=== PATIENT | female | born 1950 | race Caucasian/White ===

== ENCOUNTER → 2017-05-13 16:46 | Outpatient (CLI) | payer MEDICARE, OTHER | END | disposition home or self-care (01) | LOC: D.MAMMO 16:46 | DX: Z12.31 Encounter for screening mammogram for malignant neoplasm of breast (principal) ==

== ENCOUNTER → 2017-05-14 19:16 | Outpatient (CLI) | payer MEDICARE, OTHER | END | disposition home or self-care (01) | LOC: D.SLEEP 19:16 | DX: G47.33 Obstructive sleep apnea (adult) (pediatric) (principal) ==

== ENCOUNTER → 2017-05-22 08:41 | Outpatient (CLI) | payer MEDICARE, OTHER | END | disposition home or self-care (01) | LOC: D.ECHO 08:41 | DX: I48.91 Unspecified atrial fibrillation (principal) ==

== ENCOUNTER → 2017-06-21 07:36 | Outpatient (CLI) | payer MEDICARE, OTHER | END | disposition home or self-care (01) | LOC: D.RT 07:36 | DX: I42.9 Cardiomyopathy, unspecified (principal); I10 Essential (primary) hypertension; I48.91 Unspecified atrial fibrillation ==

== ENCOUNTER → 2017-07-22 17:07 | Outpatient (CLI) | payer MEDICARE, OTHER ==
[2017-07-22 20:10] LABS: T4 THYROXIN - FREE 1.16 ng/dL (0.76-1.46); T4 THYROXINE 10.3 ug/dL (4.7-13.3); THYROID STIMULATING HORMONE 0.58 uIU/mL (0.36-3.74)
== END | disposition home or self-care (01) ==
LOC: D.LABREF 17:07
PROVIDERS: Internal Medicine Cardiovascular Disease
DX: I48.91 Unspecified atrial fibrillation (principal)

== ENCOUNTER 2018-01-16 06:36 | Outpatient (CLI) | payer MEDICARE, OTHER ==
[~2018-01-16] VITALS: Ht 165.1 cm; Wt 65.9 kg
[2018-01-16] MEDS ORDERED: METFORMIN HCL500 M1 PO (06:52)
[2018-01-16] MEDS ORDERED: COUMADIN1 MG PO (06:52)
[2018-01-16] MEDS ORDERED: ARMOUR THYROID30 MG PO (06:53)
[2018-01-16] MEDS ORDERED: DHEA25 M1 PO (06:54)
[2018-01-16] MEDS ORDERED: PROMETRIUM100 MG PO (06:55)
[2018-01-16 07:03] VITALS: BP 114/54; Ht 165.1 cm; Wt 65.9 kg
[2018-01-16 07:09] LABS: HEMATOCRIT 36.3 % (36.0-48.0); MCH 29.9 pg (26.0-34.0); MCHC 33.1 g/dL (31.0-37.0); MCV 90.5 fL (80.0-100.0); MEAN PLATELET VOLUME 9.9 fL (7.4-10.4); PLATELET COUNT 187 10x3/uL (130-400); RBC 4.01 10x6/uL (4.00-5.40); RDW 14.1 % (11.5-14.5); WBC 5.5 10x3/uL (4.8-10.8)
[2018-01-16 07:16] LABS: ANION GAP 11.8 mmol/L (8-16); CALCIUM 8.6 mg/dL (8.5-10.1); CARBON DIOXIDE 26.2 mmol/L (21.0-32.0); CREATININE - SERUM 0.9 mg/dL (0.6-1.3)
[2018-01-16 07:19] LABS: INR 2.12 (0.85-1.17); PROTIME 23.1 SECONDS (11.6-15.0)
[2018-01-16 08:08] LABS: EOSINOPHILS 2 % (0-7); LYMPHOCYTES 54 % (15-50); MONOCYTES 6 % (2-11); NEUTROPHILS 35 % (40-80); PLATELET ESTIMATE NORMAL
== END 2018-01-16 08:25 | disposition home or self-care (01) ==
LOC: D.CATH 06:36
PROVIDERS: Internal Medicine Cardiovascular Disease
DX: R06.00 Dyspnea, unspecified (principal); Z01.812 Encounter for preprocedural laboratory examination; Z53.09 Procedure and treatment not carried out because of other contraindication

== ENCOUNTER 2018-01-22 07:09 | Outpatient (CLI) | payer MEDICARE, OTHER ==
[~2018-01-22] VITALS: Ht 165.1 cm; Wt 66.8 kg
--- NOTE | ~2018-01-22 | HEMODYNAMI ---
PATIENT:FARIDA BOWENS MEDICAL RECORD: [id number] : 52 LOCATION:[facility] ADMISSION DATE: 01/22/18 Generatedon:01/22/201810:58 Patient name: FARIDA BOWENS Patient #: [id number] SSN: [id number] : 1950 Date of study: 01/22/2018 Page: Of Hemodynamic Procedure Report Patient Data Patient Demographics Procedure consent was obtained First Name: JANUARY Gender: Female Last Name: KWAN : 1950 [facility] Initial: DORIAN Age: 67 year(s) Patient #: [id number] Race: SSN: [id number] Additional ID: [id number] Contact details Address: [address] [place] [address] [place] State: [place] City: [place] Zip code: [address] Admission Admission Data Admission Date: 01/22/2018 Admission Time: 7:09 Lab Results Lab Result Date: 01/22/2018 Lab Result Time: 0:00 Biochemistry Name Units Result Min Max BUN mg/dl 16 --(---*)-- 7 18 Creatinine mg/dl 0.8 --(-*--)-- 0.6 1.3 CBC Name Units Result Min Max Hemoglobin g/dl 11.9 *-(----)-- 13.5 17.5 Procedure Procedure Types Cath Procedure Diagnostic Procedure C [facility] w/Coronaries Sedation Charges Moderate Sedation up to 15 minutes Procedure Description Procedure Date Procedure Date: 01/22/2018 Procedure Start Time: 10:45 Procedure End Time: 10:57 Procedure Staff Name Function Gio Ashton MD Performing Physician Barbi Cota RT Monitor Venu Lewis RN Nurse Rain Florian RT Scrub Procedure Data Cath Procedure Fluoroscopy Diagnostic fluoroscopy Total fluoroscopy Time: 1.4 time: 1.4 min min Diagnostic fluoroscopy Total fluoroscopy dose: 248 dose: 248 mGy mGy Contrast Material Contrast Material Type Amount (ml) Isovue 300 25 Entry Location Entry Primary Successful Side Size Upsize Upsize Entry Closure Zelaya ccessful Closure Location (Fr) 1 (Fr) 2 (Fr) Remarks Device Remarks Radial Right 6 Fr Mechanical artery Short Compression Estimated blood loss: 5 ml Diagnostic catheters Device Type Used For End Catheter Placement DIAGNOSTIC [place] 110cm 5 Multi-vessel Fr catheter ([id number]) Angiography Procedure Complications No complications Procedure Medications Medication Administration Route Dosage Oxygen NC 2 l/min Lidocaine 2% added to field 20 Heparin Flush Bag added to field 2 bags (1000units/500ml NS) 0.9% NaCl I.V. 100 ml/hr Radial Cocktail I.A. 1 syringe (Verapomil 2mg/Nitro 400mcg/Heparin 1500units) Versed I.V. 1 mg Fentanyl I.V. 50 mcg Versed I.V. 1 mg Hemodynamics Rest HGB: 11.9 (g/dl) Heart Rate: 55 (bpm) Pressure Samples Time Site Value (mmHg) Purpose Heart Use Rate(bpm) 10:52 LV 108/4,17 Snapshot 80 Gradients Valve Time Site Site Mean SEP/DFP Peak To Heart Use 1 2 (mmHg) (sec/min) Peak Rate (mmHg) (bpm) Aortic 10:52 LV AO 108 Snapshots Pre Cath Intra NCS Post Cath Vital Signs Time Heart Resp SPO2 etCO2 NIBP Rhythm Pain Sedation Rate (ipm) (%) (mmHg) (mmHg) Status Level (bpm) 10:36:18 56 19 100 14.1 101/52(71) NSR 0 (11) 10(A) , No pain 10:41:27 58 18 98 36.4 107/52(73) NSR 0 (11) 10(A) , No pain 10:46:46 57 16 99 36.4 101/54(75) NSR 0 (11) 9(A) , No pain 10:52:23 83 15 99 34.9 92/45(73) NSR 0 (11) 9(A) , No pain 10:56:29 64 15 97 36.4 97/51(70) NSR 0 (11) 10(A) , No pain Medications Time Medication Route Dose Verified Delivered Reason Notes Effectiveness by by 10:31:20 Oxygen NC 2 l/min Gio Buffie used for Daisha Lewis RN procedure 10:31:26 Lidocaine 2% added 20ml Gio Gio for local to vial Daisha Ashton MD anesthetic field MD 10:31:32 Heparin Flush added 2 bags Gio Gio used for Bag to Daisha Ashton MD procedure (1000units/500ml field NS) 10:32:08 0.9% NaCl I.V. 100 Gio Buffie Per ml/hr Daisha Lewis RN physician 10:42:23 Versed I.V. 1 mg Gio Buffie for sedation Daisha Lewis RN, MD 10:42:28 Fentanyl I.V. 50 mcg Gio Buffie for sedation Daisha Lewis RN, MD 10:44:58 Versed I.V. 1 mg Gio Buffie for sedation Daisha Lewis RN, MD 10:50:52 Radial Cocktail I.A. 1 Gio Gio for (Verapomil syringe Daisha Ashton MD vasodilation 2mg/Nitro MD 400mcg/Heparin 1500units) Procedure Log Time Note 10:12:14 Diagnostic Cath Status : Elective 10:12:54 Rain Florian RT(R) sent for patient. Start room use. 10:12:55 Time tracking: Regular hours (M-F 7:00 - 5:00) 10:12:59 Plan of Care:Hemodynamics will remain stable., Cardiac rhythm will remain stable., Comfort level will be maintained., Respiratory function will remain adequate., Patient/ family verbilizes understanding of procedure., Procedure tolerated without complication., Recovers from procedure without complications.. 10:14:24 Informed consent obtained and on chart 10:18:09 Lab Result : Hemoglobin 11.9 g/dl 10:18:09 Lab Result : Creatinine 0.8 mg/dl 10:18:09 Lab Result : BUN 16 mg/dl 10:19:32 Patient received from Pre/Post Procedure Room to [facility] 2 Alert and oriented. Tansferred to table in Supine position. 10:19:33 Warm blankets applied, and hanna hugger turned on for patient comfort. 10:19:34 Correct patient and procedure confirmed by team. 10:19:34 ECG and BP/O2 sat monitors applied to patient. 10:31:20 Oxygen 2 l/min NC was administered by Venu Lewis RN; used for procedure; 10:31:26 Lidocaine 2% 20ml vial added to field was administered by Gio Ashton MD; for local anesthetic; 10:31:32 Heparin Flush Bag (1000units/500ml NS) 2 bags added to field was administered by Gio Ashton MD; used for procedure; 10:32:08 0.9% NaCl 100 ml/hr I.V. was administered by Venu Lewis RN; Per physician; 10:34:30 Vital chart was started 10:34:31 Baseline sample Acquired. 10:34:36 Rhythm: sinus rhythm 10:34:38 Full Disclosure recording started 10:34:41 H&P Date Dictated: 01/22/2018 Within 30 days and on chart., H&P Addendum completed by physician on day of procedure. (MUST COMPLETE FOR ALL OUTPATIENTS). 10:34:43 Pre-procedure instructions explained to patient. 10:34:43 Pre-op teaching completed and patient verbalized understanding. 10:34:45 Family in patients room. 10:34:46 Patient NPO since Midnight. 10:34:56 Is the patient allergic to Iodine/contrast media? No. 10:34:57 Was the patient premedicated? No 10:34:58 Is patient on blood thinner?Yes 10:35:01 ACC The patient was administered the following blood thiners within the last 24 hours: ACCPlavix 10:35:03 Patient diabetic? Yes. 10:35:04 If diabetic: On Metformin? Yes 10:35:08 If on Metformin: Last Dose? 01/18/2018 10:35:12 Previous problem with sedation/anesthesia? No ? 10:35:14 Snore? No 10:35:16 Sleep apnea? No 10:35:17 Deviated septum? No 10:35:19 Opens mouth fully? Yes 10:35:20 Sticks out tongue? Yes 10:35:22 Airway obstruction? No ? 10:35:26 Dentures? No ? 10:36:19 Patient stopped taking coumadin on 01/15/2018 10:36:29 Pre procedure: right dorsailis pedis pulse 2+ Normal; easily identifiable; not easily obliterated 10:36:31 Pre procedure: left dorsailis pedis pulse 2+ Normal; easily identifiable; not easily obliterated 10:36:33 Patient pain scale 0/10 ?. 10:36:40 IV patent on arrival in left forearm with 0.9% NaCl at O. 10:36:42 Lab results completed and on chart. 10:36:46 Right Radial & Right Groin area was prepped with chlora-prep and draped in sterile fashion 10:36:47 Alarms reviewed by R. N. 10:36:47 Sharps counted by scrub and verified by R.N. 10:36:50 Physician arrived 10:36:50 --------ALL STOP TIME OUT------ 10:36:51 Final Timeout: patient, procedure, and site verified with staff and physician. All members of the team are in agreement. 10:36:52 Right Radial & Right Groin site verified by team. 10:36:55 Physical assessment completed. ASA score P 2 - A patient with mild systemic disease as per Gio Ashton MD. 10:37:00 Sedation plan: IV Moderate Sedation Medication:Versed, Fentanyl 10:37:17 Use device set Radial Dx or PCI 10:37:18 ACIST Syringe (64900) opened to sterile field. 10:37:19 Medline Cath Pack ([id number]) opened to sterile field. 10:37:19 Bag Decanter (2002S) opened to sterile field. 10:37:20 DIAGNOSTIC WIRE .035 260cm J wire (501182) opened to sterile field. 10:37:20 ACIST Hand Control (31653) opened to sterile field. 10:37:21 ACIST Manifold (78477) opened to sterile field. 10:37:21 Tegaderm 4 x 4 (1626W) opened to sterile field. 10:37:23 MBrace Wrist Support ([id number]) opened to sterile field. 10:37:26 SHEATH 6Fr Prelude Radial ([id number]) opened to sterile field. 10:42:23 Versed 1 mg I.V. was administered by Venu Lewis RN; for sedation; 10:42:28 Fentanyl 50 mcg I.V. was administered by Venu Lewis RN; for sedation; 10:44:58 Versed 1 mg I.V. was administered by Venu Lewis RN; for sedation; 10:45:05 Procedure started. 10:45:09 Local anesthetic to right radial artery with Lidocaine 2% by Gio Ashton MD.INITIAL ACCESS ONLY 10:45:18 A 6 Fr Short sheath was inserted into the Right Radial artery 10:45:32 Zero performed for pressure channel P1 10:49:54 A DIAGNOSTIC [place] 110cm 5 Fr catheter ([id number]) was advanced over the wire and used for Multi-vessel Angiography. 10:50:52 Radial Cocktail (Verapomil 2mg/Nitro 400mcg/Heparin 1500units) 1 syringe I.A. was administered by Gio Ashton MD; for vasodilation; 10:52:06 LV hemodynamics recorded. 10:52:07 LV gram done using OROZCO 10:52:10 Injector settings: Ml/sec: 12, Volume: 8, 10:53:14 EF : 55 % 10:53:18 LCA angiography performed. 10:53:20 Injector settings: Ml/sec: 3, Volume: 6, 10:54:23 RCA angiography performed. 10:54:27 Injector settings: Ml/sec: 3, Volume: 6, 10:55:22 Catheter removed. 10:55:25 TR BAND Standard ([id number]) opened to sterile field. 10:55:42 Sheath removed intact; hemostasis achieved with Mechanical Compression to the Right Radial artery. 10:55:44 Procedure ended.(Physican Out) 10:56:06 Fluoroscopy time 01.40 minutes. 10:56:10 Fluoroscopy dose: 248 mGy 10:56:10 Flurop Dose total: 248 10:56:14 Contrast amount:Isovue 300 25ml. 10:56:27 Sharps counted by scrub and verified by R.N. 10:56:30 TR band inflated with 10cc of air. 10:56:32 Insertion/operative site no bleeding no hematoma. 10:56:35 Post right radial artery:stable 10:56:38 Post Procedure Pulses reassessed and unchanged 10:56:40 Post procedure rhythm: unchanged. 10:56:44 Estimated blood loss: 5 ml 10:56:45 Post procedure instruction explained to patient.Patient verbalizes understanding. 10:56:46 Patient needs reinforcement of post procedure teaching. 10:56:56 Procedure type changed to Cath procedure, Diagnostic procedure, LHC, LHC w/Coronaries, Sedation Charges, Moderate Sedation up to 15 minutes 10:56:56 Procedure and supply charges have been captured, reviewed, submitted and are correct. 10:57:01 Procedure Complication : No complications 10:57:03 Vital chart was stopped 10:57:03 See physician's report for complete and final results. 10:57:06 Report given to Pre/Post Procedure Room. 10:57:09 Patient transfered to Pre/Post Procedure Room with Stretcher. 10:57:12 Procedure ended. 10:57:12 Full Disclosure recording stopped 10:57:15 End room use (Document Last) Device Usage Item Name Manufacture Quantity Catalog Number Hospital Part Current M inimal Lot# / Charge Number Stock Stock Serial# Code ACIST Syringe Acist 1 47912 369999 403717 855673 2 0 (16587) [employer] Medline Cath Cardinal 1 [id number] 334516 64631 499872 5 Pack Health ([id number]) Bag Decanter Microtek 1 2001S 603094 89456 205555 5 (2001S) [employer] Inc. DIAGNOSTIC WIRE [facility] [place] 1 870016 154415 635910 161600 3 0 .035 260cm J wire (702810) ACIST Hand Acist 1 37133 934222 193382 637016 5 Control (77109) [employer] ACIST Manifold Acist 1 64731 735955 808264 137727 5 (21867) [employer] Tegaderm 4 x 4 3M 1 1626W 223210 562114 269614 5 (1626W) MBrace Wrist Advanced 1 140-0250-00 068521 95997 794625 5 Support Vascular ([id number]) Dynamics SHEATH 6Fr Merit 1 [id number] 554199 317081 761397 5 Prelude Radial Medical ([id number]) DIAGNOSTIC Terumo 1 40-2123 577540 042919 802946 5 [place] 110cm 5 Fr catheter (250842) TR BAND Terumo 1 [id number] 280137 791089 773405 4 0 Standard ([id number]) Signature Audit [place] Stage Time Signature Unsigned Intra-Procedure 01/22/2018 Barbi Cota 10:58:22 AM RT(R) Signatures Monitor : Barbi Cota RT Signature : Date : Time : [facility] [address] [place] [address]
[~2018-01-22 07:09] MED LIST: ARMOUR THYROID30 MG PO; COUMADIN1 MG PO; DHEA25 M1 PO; METFORMIN HCL500 M1 PO; PROMETRIUM100 MG PO
[2018-01-22] MEDS ORDERED: VITAMIN D31000 UNI2 PO (07:21)
[2018-01-22] MEDS ORDERED: BIOTIN5 MG PO (07:22)
[2018-01-22] MEDS ORDERED: CRANBERRY 400 M1 TA1 PO (07:23)
[2018-01-22] MEDS ORDERED: BAYER CHEWABLE81 MG (07:25)
[2018-01-22 07:35] VITALS: BP 121/59; Ht 165.1 cm; Wt 66.8 kg
[2018-01-22 08:28] LABS: INR 1.29 (0.85-1.17); PROTIME 15.7 SECONDS (11.6-15.0)
[2018-01-22 08:56] LABS: BASOPHILS 0.4 % (0-2); EOSINOPHILS 1.3 % (0-7); HEMATOCRIT 35.9 % (36.0-48.0); HEMOGLOBIN 11.9 g/dL (12-16); IMMATURE GRANULOCYTES 0.4 % (0-5); MCH 30.2 pg (26.0-34.0); MCHC 33.1 g/dL (31.0-37.0); MCV 91.1 fL (80.0-100.0); MEAN PLATELET VOLUME 13.6 fL (7.4-10.4); MONOCYTES 6.8 % (2-11); NEUTROPHILS 27.1 % (40-80); PLATELET COUNT 220 10x3/uL (130-400); RBC 3.94 10x6/uL (4.00-5.40); RDW 15.3 % (11.5-14.5); WBC 5.6 10x3/uL (4.8-10.8)
[2018-01-22 09:07] LABS: CALC OSMOLALITY 285 mosm/kg (275-300); CALCIUM 8.8 mg/dL (8.5-10.1); CARBON DIOXIDE 27.7 mmol/L (21.0-32.0); CHLORIDE - SERUM 107 mmol/L (98-107); CREATININE - SERUM 0.8 mg/dL (0.6-1.3); GLUCOSE 99 mg/dL (74-106); POTASSIUM - SERUM 4.2 mmol/L (3.5-5.1); SODIUM 143 mmol/L (136-145); UREA NITROGEN 16 mg/dL (7-18); eGFR NON AFRICAN AMERICAN 76 mL/min (90-120)
== END 2018-01-22 13:05 | disposition home or self-care (01) ==
LOC: D.CATH 07:09
PROVIDERS: Internal Medicine Cardiovascular Disease
DX: I25.10 Atherosclerotic heart disease of native coronary artery without angina pectoris (principal); Z01.812 Encounter for preprocedural laboratory examination

== ENCOUNTER → 2018-03-18 16:34 | Outpatient (CLI) | payer MEDICARE, OTHER ==
[2018-01-22 07:35] VITALS: BMI 24.5
[~2018-03-18 16:34] MED LIST changes: +BAYER CHEWABLE81 MG; +BIOTIN5 MG PO; +CRANBERRY 400 M1 TA1 PO; +VITAMIN D31000 UNI2 PO
[2018-03-18 20:18] LABS: LDL-HDL RATIO 2.7 ratio (1.5-3.5)
== END | disposition home or self-care (01) ==
LOC: D.LABREF 16:34
PROVIDERS: Internal Medicine Cardiovascular Disease
DX: Z00.00 Encounter for general adult medical examination without abnormal findings (principal); I48.91 Unspecified atrial fibrillation

== ENCOUNTER → 2018-07-03 13:12 | Outpatient (CLI) | payer MEDICARE, OTHER ==
[2018-01-22 07:35] VITALS: BMI 24.5
== END | disposition home or self-care (01) ==
LOC: D.MRI 13:12
DX: M25.552 Pain in left hip (principal)

== ENCOUNTER → 2019-09-10 20:30 | Outpatient (CLI) | payer MEDICARE, OTHER ==
[2018-01-22 07:35] VITALS: BMI 24.5
== END | disposition home or self-care (01) ==
LOC: D.MAMMO 11:30
PROVIDERS: ATTEND Family Medicine
DX: Z12.31 Encounter for screening mammogram for malignant neoplasm of breast (principal)

== ENCOUNTER → 2021-02-09 13:30 | Outpatient (CLI) | payer MEDICARE, OTHER ==
[2018-01-22 07:35] VITALS: BMI 24.5
== END | disposition home or self-care (01) ==
LOC: D.MAMMO 13:30
PROVIDERS: ATTEND Family Medicine
DX: Z12.31 Encounter for screening mammogram for malignant neoplasm of breast (principal)